=== PATIENT | male | born 1995 ===

== ENCOUNTER 2017-06-01 15:47 | Emergency (ER) | payer MEDICAID ==
[2017-06-01 15:58] VITALS: BP 111/53; PULSE 63; RESP 16; TEMP 98.2; O2SAT 97
--- NOTE | 2017-06-01 16:47 | ED PDOC ---
HPI: Chest Pain Time Seen by Provider: 06/01/17 16:30 Chief Complaint (Nursing): Chest Pain Chief Complaint (Provider): Chest pain History Per: Patient History/Exam Limitations: no limitations Onset/Duration Of Symptoms: Other (2 weeks) Current Symptoms Are (Timing): Still Present Quality: "Pain" Additional Complaint(s): Nishant Green is a 22 y/o male presenting to the ER on 06/01/2017 with complaints of chest pain onset two weeks. Patient reports pain originated after he fell off a trampoline, forcing him to land on his chest. Patient states he hears a "clicking" noise when he takes deep breaths. Offers no other complaints at this time. Past Medical History Reviewed: Historical Data, Nursing Documentation, Vital Signs Vital Signs: Last Vital Signs Temp 98.2 F 06/01/17 15:55 Pulse 63 06/01/17 15:55 Resp 16 06/01/17 15:55 BP 111/53 L 06/01/17 15:55 Pulse Ox 97 06/01/17 16:49 - Medical History PMH: No Chronic Diseases - Surgical History Surgical History: No Surg Hx - Family History Family History: States: Unknown Family Hx - Social History Current smoker - smoking cessation education provided: No Alcohol: None Drugs: Denies - Allergies Allergies/Adverse Reactions: Allergies Allergy/AdvReac Type Severity Reaction Status Date / Time No Known Allergies Allergy Verified 06/01/17 15:55 Review of Systems ROS Statement: Except As Marked, All Systems Reviewed And Found Negative Cardiovascular: Positive for: Chest Pain. Negative for: Palpitations Respiratory: Negative for: Shortness of Breath Musculoskeletal: Negative for: Back Pain Neurological: Negative for: Weakness, Numbness, Headache Physical Exam - Reviewed Nursing Documentation Reviewed: Yes Vital Signs Reviewed: Yes - Physical Exam Appears: Positive for: Non-toxic, No Acute Distress Head Exam: Positive for: ATRAUMATIC, NORMOCEPHALIC Skin: Positive for: Normal Color. Negative for: Rash Eye Exam: Positive for: Normal appearance Neck: Positive for: Normal, Painless ROM, Supple Cardiovascular/Chest: Positive for: Regular Rate, Rhythm. Negative for: Chest Non Tender ((+) moderate tenderness to mid sternum ), Murmur Respiratory: Positive for: Normal Breath Sounds. Negative for: Respiratory Distress Extremity: Positive for: Normal ROM. Negative for: Deformity, Swelling Neurologic/Psych: Positive for: Alert, Oriented. Negative for: Motor/Sensory Deficits - ECG O2 Sat by Pulse Oximetry: 97 - Radiology X-Ray: Interpreted by Me X-Ray Interpretation: No Acute Disease Medical Decision Making Medical Decision Makin:30 Initial Impression- 22 y/o male with chest pain; r/o fracture Initial Plan- * XR Ribs Bilat negative for fx. pt mostlikely with contusion vs costochrondritis. Documented by July Lai, acting as a scribe for Brittani Manriquez PA-C All medical record entries made by the Scribe were at my direction and personally dictated by me. I have reviewed the chart and agree that the record accurately reflects my personal performance of the history, physical exam, medical decision making, and the department course for this patient. I have also personally directed, reviewed, and agree with the discharge instructions and disposition. Disposition - Clinical Impression Clinical Impression: Rib contusion - Patient ED Disposition Is Patient to be Admitted: No Counseled Patient/Family Regarding: Studies Performed, Diagnosis, Need For Followup, Rx Given - Disposition Referrals: [facility] [Outside] Disposition: Routine/Home Disposition Time: 17:33 Condition: STABLE Instructions: Rib Contusion (ED) Forms: [facility] ED School/Work Excuse
--- NOTE | 2017-06-02 10:05 | RAD ---
PROCEDURE: Radiographs of the chest and bilateral ribs HISTORY: chest pain COMPARISON: None available. TECHNIQUE: Frontal radiograph of the chest and multiple oblique radiographs of the bilateral ribs were obtained. FINDINGS: RIGHT RIBS: No fracture or focal lesion visualized. LEFT RIBS: No fracture or focal lesion visualized. LUNGS: Clear. PLEURA: No pneumothorax or pleural fluid. CARDIOVASCULAR: Normal sized heart. No pulmonary vascular congestion. OTHER FINDINGS: None. IMPRESSION: Unremarkable radiographs of the chest and bilateral ribs. No rib fracture.
--- NOTE | 2017-06-03 06:11 | CARD ---
APPROVED REPORT EKG Measurement Heart [id number] <Conclusion> Normal sinus rhythm with sinus arrhythmia Normal ECG
== END 2017-06-01 17:42 | disposition home or self-care (01) ==
LOC: H.ER 15:47
DX: S20.219A Contusion of unspecified front wall of thorax, initial encounter (principal); Y93.44 Activity, trampolining; X50.9XXA Other and unspecified overexertion or strenuous movements or postures, initial encounter

== ENCOUNTER 2017-07-24 14:33 | Emergency (ER) | payer SELFPAY ==
[2017-07-24 14:44] VITALS: BP 104/57; PULSE 97; RESP 16; TEMP 98.9; O2SAT 96
--- NOTE | 2017-07-24 14:56 | ED PDOC ---
Lower Extremity Pain/Injury Time Seen by Provider: 07/24/17 14:38 Chief Complaint (Nursing): Lower Extremity Problem/Injury Chief Complaint (Provider): Lower Extremity Problem/Injury History Per: Patient History/Exam Limitations: no limitations Onset/Duration Of Symptoms: Mins (x30) Current Symptoms Are (Timing): Still Present Additional Complaint(s): Nishant Green is a 22 year old male who presents to the emergency department via EMS with a complaint of right foot pain associated with swelling status post falling down the stairs 30 minutes prior to arrival. Denied loss of consciousness. PMD: Past Medical History Reviewed: Historical Data, Nursing Documentation, Vital Signs Vital Signs: Last Vital Signs Temp 98.9 F 07/24/17 14:41 Pulse 97 H 07/24/17 14:41 Resp 16 07/24/17 14:41 BP 104/57 L 07/24/17 14:41 Pulse Ox 96 07/24/17 14:41 - Medical History PMH: No Chronic Diseases - Surgical History Surgical History: No Surg Hx - Family History Family History: States: Unknown Family Hx - Immunization History Hx Tetanus Toxoid Vaccination: No Hx Influenza Vaccination: No Hx Pneumococcal Vaccination: No - Allergies Allergies/Adverse Reactions: Allergies Allergy/AdvReac Type Severity Reaction Status Date / Time No Known Allergies Allergy Verified 06/01/17 15:55 Review of Systems ROS Statement: Except As Marked, All Systems Reviewed And Found Negative Musculoskeletal: Positive for: Foot Pain (right associated with swelling) Neurological: Negative for: Other (loss of consciousness) Physical Exam - Reviewed Nursing Documentation Reviewed: Yes Vital Signs Reviewed: Yes - Physical Exam Appears: Positive for: Well, Non-toxic, No Acute Distress Head Exam: Positive for: ATRAUMATIC, NORMAL INSPECTION, NORMOCEPHALIC Cardiovascular/Chest: Positive for: Regular Rate, Rhythm Respiratory: Positive for: Normal Breath Sounds. Negative for: Respiratory Distress Pulses-Dorsalis Pedis (R): 2+ Extremity: Positive for: Normal ROM, Tenderness (right foot medially; especially medial malleolus with mild ecchymosis). Negative for: Pedal Edema, Deformity, Swelling Neurologic/Psych: Positive for: Alert, global product manager II-XII, Oriented, Other (normal sensation of right foot). Negative for: Motor/Sensory Deficits - ECG O2 Sat by Pulse Oximetry: 96 (RA) Pulse Ox Interpretation: Normal Medical Decision Making Medical Decision Making: Initial Impression: Right foot pain S/P fall Initial Plan: * Xray foot (right) * Motrin 600mg PO * Xray ankle (right) Time: 1509 --Xray foot FINDINGS: BONES: Normal. No fracture. JOINTS: Normal. SOFT TISSUES: Normal. OTHER FINDINGS: None. IMPRESSION: Unremarkable right foot radiographs. --Xray ankle FINDINGS: BONES: Normal. No fracture. JOINTS: Normal. No osteoarthritis. Ankle mortise maintained. Talar dome intact SOFT TISSUES: Normal. OTHER FINDINGS: None. IMPRESSION: Unremarkable right ankle radiographs. Scribe Attestation: Documented by Lupe Wallace, acting as a scribe for Aliza Emanuel PA-C. Provider Scribe Attestation: All medical record entries made by the Scribe were at my direction and personally dictated by me. I have reviewed the chart and agree that the record accurately reflects my personal performance of the history, physical exam, medical decision making, and the department course for this patient. I have also personally directed, reviewed, and agree with the discharge instructions and disposition. Disposition - Clinical Impression Clinical Impression: Ankle injury - Patient ED Disposition Is Patient to be Admitted: No Counseled Patient/Family Regarding: Diagnosis, Need For Followup, Rx Given - Disposition Referrals: Helio La DPM [Medical Doctor] - Disposition: Routine/Home Disposition Time: 15:53 Condition: GOOD Additional Instructions: Ice, elevation. Instructions: Ankle Sprain (ED) Forms: [employer] (Frisian)
--- NOTE | 2017-07-24 15:10 | RAD ---
PROCEDURE: Right Foot Radiographs. HISTORY: Medial foot and ankle Pain. No history of recent/ related trauma provided COMPARISON: July 24, 2017. Right ankle reported separately. FINDINGS: BONES: Normal. No fracture. JOINTS: Normal. SOFT TISSUES: Normal. OTHER FINDINGS: None. IMPRESSION: Unremarkable right foot radiographs.
--- NOTE | 2017-07-24 15:11 | RAD ---
PROCEDURE: Right Ankle Radiographs. HISTORY: Medial foot and ankle pain COMPARISON: July 24, 2017. FINDINGS: BONES: Normal. No fracture. JOINTS: Normal. No osteoarthritis. Ankle mortise maintained. Talar dome intact SOFT TISSUES: Normal. OTHER FINDINGS: None. IMPRESSION: Unremarkable right ankle radiographs.
== END 2017-07-24 16:29 | disposition home or self-care (01) ==
LOC: H.ER 14:33
DX: S99.911A Unspecified injury of right ankle, initial encounter (principal); W10.9XXA Fall (on) (from) unspecified stairs and steps, initial encounter